=== PATIENT | female | born 1980 | race Caucasian/White ===

== ENCOUNTER 2017-03-30 05:44 | Emergency (ER) | payer OTHER ==
[~2017-03-30] VITALS: Ht 154.9 cm; Wt 68.2 kg
[2017-03-30] MEDS ORDERED: NEOMYCIN/POLYMYXIN B/HYDROCORT 10 ML OTIC SUSPENSION AS ONE (08:45)
[2017-03-30 08:55] VITALS: BP 105/68
== END 2017-03-30 08:57 | disposition home or self-care (01) ==
LOC: EMS 05:47
DX: H60.92 Unspecified otitis externa, left ear (principal)
CPT/HCPCS: 99283